=== PATIENT | male | born 1985 | race Caucasian/White ===

== ENCOUNTER → 2023-07-23 | Outpatient (CLI) | payer BC ==
--- NOTE | 2023-07-23 14:05 | P.SLEEP ---
History of Present Illness DATE: 07/23/2023 CONSULTATION/NEW PATIENT EVALUATION HISTORY OF PRESENT ILLNESS/SLEEP-WAKE EVALUATION: 37 year old gentleman had been evaluated in the sleep center for possible obstructive sleep apnea hypopnea syndrome. SLEEP SCHEDULE: Usually sleep schedule from 1011 PM until 6:30 AM on weekdays and from 10-12 until 78 AM on weekend. FALLING ASLEEP: Sometimes patient has difficulties to fall asleep although no TV in bedroom. DURING SLEEP: Patient has loud snoring and witnessed episodes of stop breathing during the sleep by his . Patient wakes up from sleep 3 times with nocturia No history of hypnogogical hallucinations, sleep paralysis, or cataplexy. DURING THE DAY/WAKE STATE: In the morning patient wake up tired, has difficulties to pay attention, has problems with memory, concentration, irritability. [place] sleepiness scale is high 14 usually patient doesn't take naps. PAST MEDICAL HISTORY: Depression, anxiety, asthma, hyperlipidemia . PAST SURGICAL HISTORY: Bilateral cataract surgery in 2002. MEDICATIONS: Wellbutrin 350 mg once a day, Zyprexa 10 mg once a day, Clomid 50 mg once a day. SOCIAL HISTORY: Negative for smoking, alcohol consumption occasional. FAMILY HISTORY: Stroke, sleep apnea, cancer, diabetes. REVIEW OF SYSTEMS: Loud snoring, multiple awakenings from sleep, significant excessive daytime sleepiness. No fevers. No double vision. No recent chest pain. No shortness of breath. No abdominal pain. No bleeding episodes. No blood in urine. No seizure episodes. PHYSICAL EXAMINATION: GENERAL: A pleasant patient without any distress. VITAL SIGNS: BP 147/90 , HR 79 , RR 16 , weight 294.4 pounds, height 5 foot 7 inches, body mass index 46.0 . HEENT: PERRLA, EOMI. Evaluation of oropharynx showed tongue protrudes midline, low position of soft palate Mallampati 34. NECK: Supple. No JVD. Thyroid is not palpable. 19.5 inches in circumference. LUNGS: Clear to percussion and to auscultation. Good air exchange. No wheezing or rhonchi. HEART: S1, S2 regular. No murmurs, gallops or rubs. ABDOMEN: Soft and nontender. Bowel sounds are present. No organomegaly appreciated. Obese EXTREMITIES: No clubbing or cyanosis. RAILWAY SWITCH OPERATOR: Awake, alert, and oriented x3. Cranial nerves 2 to 7 intact. There is no fasciculation or atrophy noted. No focal deficits observed. ASSESSMENT: 1. Loud snoring, witnessed episodes of stop breathing during the sleep, extremely low position of soft palate, extremely wide neck 19.5 inches in circumference, significant sleepiness [place] Sleepiness Scale increased to 14. Obstructive sleep apnea hypopnea syndrome. 2. Obesity, BMI 46.0. 3. History of depression. 4. History of anxiety. 5 history of asthma. 6 . Hyperlipidemia. 7. Status post bilateral surgery for cataract. PLAN: 1. Home sleep apnea test for evaluation of patient's breathing during sleep. 2. CPAP/BiPAP titration if sleep study confirms obstructive sleep apnea- hypopnea syndrome. 3. Preferable position during sleep on the side. 4. No driving if patient feels any sleepiness. Patient is aware of civil and criminal liability for unsafe driving. 5. Sleep hygiene with regular sleep time for at least 7.5-8 hours. 6. Watching and losing weight. Thank you very much for referring this patient for consultation. Sincerely, Bradley Robles MD, PhD, FAASM. Diplomat of [place] [employer], Sleep Medicine Board by [employer] Buffing Wheel Raker [facility] [place] [facility] - Sleep Note Sleep Note: Temperature: Pulse Rate: Respiratory Rate: Blood Pressure: SpO2: Height: Weight: BMI: Neck Circumference:
== END ==
LOC: 3 N SLEEP 13:39
PROVIDERS: ATTEND Internal Medicine
DX: G47.33 Obstructive sleep apnea (adult) (pediatric) (principal); E66.9 Obesity, unspecified; F32.A Depression, unspecified; F41.9 Anxiety disorder, unspecified; E78.5 Hyperlipidemia, unspecified; Z98.890 Other specified postprocedural states; Z68.42 Body mass index [BMI] 45.0-49.9, adult
CPT/HCPCS: 99211

== ENCOUNTER → 2023-08-07 | Outpatient (CLI) | payer BC | LOC: 3 N SLEEP 16:46 | PROVIDERS: ATTEND Internal Medicine | DX: G47.33 Obstructive sleep apnea (adult) (pediatric) (principal) ==

== ENCOUNTER 2023-09-16 19:40 | Outpatient (CLI) | payer BC ==
--- NOTE | 2023-09-18 14:11 | P.PCN ---
Description of Procedure: CLINICAL: Titration with positive air pressure has been done for correction of respiratory abnormalities during sleep. DESCRIPTION OF PROCEDURE: The standard montage for clinical polysomnography included the electroencephalogram, the electrocardiogram, the mentalis surface electromyography and Lead II cardiography. The respiratory battery consisted of measurements of nasal /buccal air flow, pressure transducer measurements from the nose, thoracic and /or abdominal effort and intercostal surface electromyography. Video monitoring has been done to check for any parasomnia events. Nocturnal oxyhemoglobin saturations were obtained by finger oximetry. Step-esquivel titration with positive airway pressure was utilized to control respiratory events. Raw data of sleep recording has been reviewed and is adequate. RESULTS: Sleep efficiency was normal 90.7 %. Latency to sleep onset was borderline 27.5 minutes.]. Sleep architecture showed stage N1 was slightly short 4.2 %, Delta sleep was absent 0 %, REM sleep was increased to 32.1 %. Heart rate was minimum 69 BPM, maximum 80 BPM, average 74 BPM. EMG showed 14.4 periodic limb movements per hour with 0.3 micriarousals per hour. PAP titration have been done with CPAP up to the pressure 14 cm H2O. Patient patient continued to have abnormalities of respiration on CPAP, switched to BPAP. BPAP titrated up to 19/15 cm H2O. The best results were at the pressure 19/15 cm H2O. Apnea hypopnea index reduced to 1.7. IMPRESSION: 1. Obstructive sleep apnea hypopnea syndrome on controle with BPAP treatment. 2. Mild periodic limb movements have been documented. Please see other impressions from consultation. PLAN: 1. The patient will have treatment with positive air pressure equipment with the level of pressure maximal inspiratory pressure 19, minimal expiratory pressure 8, pressure-support 4 cm H2O and should use it every night for the whole night. 2. Watching weight. 3. Sleep hygiene with regular time in bed for at least 8 hours. 4. No driving if feeling any sleepiness. 5. I will see the patient for follow up visit to explain the results of the test, recommendations, check compliance with treatment and make any necessary adjustment related to mask fitting, pressure and humidification. 6. Please check iron profile including ferritin level. Low level of iron may increase risk for periodic limb movements Thank you very much for allowing me to participate in the management of your patient. Sincerely, Bradley Robles MD, PhD, FAASM Diplomat of [employer] Sleep Medicine Board of [employer] Varnishing Unit Tool Setter [facility] [place]
== END 2023-09-17 05:45 | disposition home or self-care (01) ==
LOC: 3 N SLEEP 19:40
PROVIDERS: ATTEND Internal Medicine
DX: G47.33 Obstructive sleep apnea (adult) (pediatric) (principal); G47.61 Periodic limb movement disorder
CPT/HCPCS: 95811

== ENCOUNTER → 2024-01-01 | Outpatient (CLI) | payer BC ==
--- NOTE | 2024-01-01 16:41 | P.PN ---
Subjective DATE: 01/01/2024 FOLLOW UP VISIT. Patient with obstructive sleep apnea hypopnea syndrome return to sleep center for follow-up visit. Recently patient had sleep study which documented obstructive sleep apnea hypopnea syndrome. Patient was initiated on PAP therapy and today is first visit after treatment was started. Patient was able to use PAP equipment every night for the whole night. The patient does not have significant problems with the mask, PAP pressure and humidification. [place] sleepiness scale is 7. I checked information from PAP unit. PAP unit pressure maximal inspiratory pressure 19, minimal expiratory pressure 8, pressure-support 4, average pressure 17/13 cm H2O. Usage is 100% and 80% for more then 4 hours, average 5.4 hours per night. Leak is increased to 48 l/m, patient has willoughby and mustache. Apnea Hypopnea Index is 1.5, which is normal. MEDICATIONS:1. Wellbutrin 350 mg once a day 2. Zyprexa 10 mg once a day During physical exam: GENERAL: A pleasant patient without any distress. VITAL SIGNS: BP 154/90, HR 96, RR 16, weight 272, temperature 98.6, oxygen saturation at room air 97%. HEENT: PERRLA, EOMI.low position of soft palate, Mallapati 3-4 . NECK: Supple. No JVD. LUNGS: Clear to percussion and to auscultation. Good air exchange. No wheezing or rhonchi. HEART: S1, S2 regular. ABDOMEN: Soft and nontender.[] EXTREMITIES: No clubbing or cyanosis. CORRUGATED FASTENER DRIVER: Awake, alert, and oriented x3. No focal deficit. Impressions: 1. Obstructive sleep apnea-hypopnea syndrome. Patient demonstrated great compliance with treatment, benefiting from treatment. 2. Obesity patient lost weight and 22 pounds comparing to previous visit. 3. History of depression. 4. History of anxiety. 5. History of asthma. 6. Hyperlipidemia. 7. Status post bilateral cataract surgery. Plan: 1. Continue using PAP equipment every night for the whole night. 2. To change air filter at least 1-2 times per month. 3. PAP unit should stay lower then position of the head. 4. Advised patient to remove all remaining water from humidifier canister daily and make it dry after each usage. Refill canister with fresh distilled water before each usage. 5. Sleep hygiene with regular time in bed for at least 8 hours. 6. Precautions related to driving. No driving if feel any sleepiness. 7. I will maintain prescription for PAP supplies including mask, tube, filters. 8. Follow up visit in 6 months or earlier if patient has any problems. 9. Watching and losing weight. Thank you very much for allowing me to participate in the management of your patient. Bradley Robles MD, PhD, FAASM. Diplomat of [place] [employer], Sleep Medicine Board by [employer] Supervisor [employer] [facility] [place]
== END ==
LOC: 3 N SLEEP 16:19
PROVIDERS: ATTEND Internal Medicine
DX: G47.33 Obstructive sleep apnea (adult) (pediatric) (principal); E66.9 Obesity, unspecified; E78.5 Hyperlipidemia, unspecified; F32.A Depression, unspecified; F41.9 Anxiety disorder, unspecified; J45.909 Unspecified asthma, uncomplicated; Z98.41 Cataract extraction status, right eye; Z98.42 Cataract extraction status, left eye; Z79.899 Other long term (current) drug therapy; Z99.89 Dependence on other enabling machines and devices
CPT/HCPCS: 99212

== ENCOUNTER → 2025-01-25 | Outpatient (CLI) | payer OTHER ==
--- NOTE | 2025-01-25 16:52 | NM ---
EXAMINATION TYPE: NM DatScan Brain SPECT DATE OF EXAM: 01/25/2025 COMPARISON: MRI brain 01/19/2025 CLINICAL INDICATION: Male, 39 years old with history of R25.1 tremor; TECHNIQUE: 10 drops of Lugol's solution was administered 1 hour prior to injection as a thyroid bloc kapil agent. After the administration of 4.82 mCi I-123 Ioflupane DaTscan. Images obtained 3 hours p ost injection. SPECT images of the brain were acquired with axial and coronal reconstructions. FINDINGS: The uptake of radiotracer within the patient's caudate nuclei and putamina is symmetric and crescent- shaped. IMPRESSION: There is no scintigraphic evidence of a neurodegenerative disorder (Parkinson's disease, Multisystem atrophy or Progressive supranuclear palsy), as there is symmetric uptake of I-123 Ioflupan (DaTscan) within the caudate nuclei and putamina. [facility], , 01/25/2025 4:50 PM
== END | disposition home or self-care (01) ==
LOC: RADNMMAIN 10:54
PROVIDERS: ATTEND Psychiatry & Neurology Neurology
DX: G25.0 Essential tremor (principal); R29.898 Other symptoms and signs involving the musculoskeletal system
CPT/HCPCS: 78803; A9584